=== PATIENT | female | born 1975 | race Caucasian/White ===

== ENCOUNTER 2019-11-15 21:35 | Inpatient (IN) | payer MEDICARE ==
[~2019-11-15] VITALS: Ht 160 cm; Wt 89.5 kg
[2019-11-15] MEDS ORDERED: BUMEX2 MG PO (22:35)
[2019-11-15] MEDS ORDERED: ALDACTONE50 MG PO (22:36)
[2019-11-15] MEDS ORDERED: K-DUR20 MEQ PO (22:36)
[2019-11-15] MEDS ORDERED: ADCIRCA20 MG PO (22:37)
[2019-11-16 00:57] LABS: BASOPHILS 0.2 % (0-2); EOSINOPHILS 1.6 % (0-7); HEMATOCRIT 34.9 % (36.0-48.0); HEMOGLOBIN 9.9 g/dL (12-16); IMMATURE GRANULOCYTES 0.3 % (0-5); LYMPHOCYTES 16.9 % (15-50); MCH 21.2 pg (26.0-34.0); MCHC 28.4 g/dL (31.0-37.0); MCV 74.9 fL (80.0-100.0); MEAN PLATELET VOLUME 9.2 fL (7.4-10.4); MONOCYTES 5.8 % (2-11); NEUTROPHILS 75.2 % (40-80); PLATELET COUNT 212 10x3/uL (130-400); RBC 4.66 10x6/uL (4.00-5.40); RDW 17.5 % (11.5-14.5)
[2019-11-16 01:06] LABS: ANION GAP 11.9 mmol/L (8-16); CALCIUM 8.7 mg/dL (8.5-10.1); CARBON DIOXIDE 29.3 mmol/L (21.0-32.0); CREATININE - SERUM 1.9 mg/dL (0.6-1.3); POTASSIUM - SERUM 3.2 mmol/L (3.5-5.1)
[2019-11-16 01:19] LABS: ALBUMIN 3.7 g/dL (3.4-5.0); BILIRUBIN - TOTAL 0.26 mg/dL (0.2-1.3); PROTEIN - SERUM 7.9 g/dL (6.4-8.2)
[2019-11-16 05:02] VITALS: BP 103/71
[2019-11-16 06:32] VITALS: BP 102/60
[2019-11-16 10:48] VITALS: BP 111/63
[2019-11-16 13:25] LABS: ANION GAP 14.4 mmol/L (8-16); CALCIUM 8.3 mg/dL (8.5-10.1); CARBON DIOXIDE 25.3 mmol/L (21.0-32.0); CREATININE - SERUM 1.6 mg/dL (0.6-1.3); POTASSIUM - SERUM 3.7 mmol/L (3.5-5.1)
--- NOTE | 2019-11-16 15:00 | NUR ---
RECEIVE PATIENT FROM ER VIA WHEELCHAIR. AMBULATORY. [facility] TO RIGHT CHEST PRIOR TO ADMITTANCE. WILL CHANGE DRESSING TODAY PER PROTOCOL. WILL CONTINUE PLAN OF CARE AND SAFETY PRECAUTIONS.
[2019-11-16] MEDS ORDERED: REMODULIN IV (15:08)
[2019-11-16] MEDS ORDERED: HYDROCODON-ACE1 EAC7 PO (15:10)
[2019-11-16] MEDS ORDERED: ZOFRAN4 MG PO (15:11)
[2019-11-16] MEDS ORDERED: LOMOTIL 2.5-0.1 EAC1 PO (15:12)
[2019-11-16] MEDS ORDERED: OMEPRAZOLE20 M1 PO (15:13)
[2019-11-16 16:28] VITALS: BP 117/73; Ht 160 cm; Wt 89.5 kg
--- NOTE | 2019-11-16 16:32 | NUR ---
CALLED AND SPOKE WITH NOEMY BACON ABOUT PATIENT HOME MEDICATION THROUGH [facility]. HE STATED "HE WAS FINE WITH HER BRINGING IT FROM HOME OR CALL PHARMACY AND SEE IF THEY HAVE SOMETHING SIMILAR SO THAT WE CAN MAKE SURE WE GET IT ADMINISTERED CORRECTLY." PHARMACY STATES THEY DO NOT HAVE ANYTHING LIKE THAT HERE FOR PATIENT TO BRING HOME MED AND SEND IT DOWN TO PHARMACY UPON ARRIVAL.
[2019-11-16 20:00] VITALS: BP 120/74
[2019-11-17] VITALS: BP 105/74
[2019-11-17 04:00] VITALS: BP 98/70
--- NOTE | 2019-11-17 07:44 | NUR ---
RECEIVE SHIFT REPORT. IN BED WITH KHADIJAH AT BEDSIDE. WANTS TO KNOW ABOUT HER POTASSIUM BECAUSE OF THE LASIX SHE HAS BEEN GETTING. WILL ADDRESS WHEN AM LABS ARE BACK. DENIES ANY OTHER NEEDS AT THIS TIME. WILL CONTINUE PLAN OF CARE AND SAFETY PRECAUTIONS.
[2019-11-17 07:52] LABS: BASOPHILS 0.2 % (0-2); EOSINOPHILS 2.2 % (0-7); HEMOGLOBIN 9.4 g/dL (12-16); IMMATURE GRANULOCYTES 0.3 % (0-5); LYMPHOCYTES 16.6 % (15-50); MCH 21.5 pg (26.0-34.0); MCHC 29.4 g/dL (31.0-37.0); MCV 73.1 fL (80.0-100.0); MEAN PLATELET VOLUME 9.3 fL (7.4-10.4); MONOCYTES 5.9 % (2-11); NEUTROPHILS 74.8 % (40-80); PLATELET COUNT 211 10x3/uL (130-400); RBC 4.38 10x6/uL (4.00-5.40); RDW 17.3 % (11.5-14.5); WBC 10.4 10x3/uL (4.8-10.8)
[2019-11-17 08:15] LABS: ALBUMIN 3.4 g/dL (3.4-5.0); ANION GAP 11.2 mmol/L (8-16); BILIRUBIN - TOTAL 0.29 mg/dL (0.2-1.3); CALCIUM 8.3 mg/dL (8.5-10.1); CARBON DIOXIDE 28.7 mmol/L (21.0-32.0); CREATININE - SERUM 1.5 mg/dL (0.6-1.3); MAGNESIUM - SERUM 1.9 mg/dL (1.8-2.4); PHOSPHOROUS 3.6 mg/dL (2.5-4.9); POTASSIUM - SERUM 3.9 mmol/L (3.5-5.1); PROTEIN - SERUM 6.8 g/dL (6.4-8.2)
--- NOTE | 2019-11-17 08:55 | EC ---
PATIENT:KELLEE BENNETT DATE OF SERVICE: 11/16/19 SEX: F MEDICAL RECORD: [id number] DATE OF : [birth year] LOCATION:D.M2 D.210 AGE OF PATIENT: 43 ADMISSION DATE: 11/16/19 REFERRING PHYSICIAN: INTERPRETING PHYSICIAN: CAPRICE العراقي MD ECHOCARDIOGRAM REPORT ECHO CHARGES 4 ECHO COMPLETE Date: 11/16/19 CLINICAL DIAGNOSIS: PULMONARY HTN, DYSPNEA ECHOCARDIOGRAPHIC MEASUREMENTS (adult normal given) AC root (d.<3.7cm) 2.4 cm LV Septum d (<1.2 cm> 1.1 cm Valve Excursion 1.6 cm LV Septum (systole) 1.2 cm Left Atria (s.<4.0cm> 3.9 cm LVPW d(<1.2cm) 1.0 cm RV (d.<2.3cm) 4.6 cm LVPW (sytole) 1.6 cm LV diastole(<5.6CM) 4.0 cm MV E-F(>70mm/sec) cm LV systole 2.9 cm LVOT Diameter 1.4 cm MV exc.(>10mm) 0.9 cm Est.ejection fraction (50-75%) % DOPPLER: LVIT cm/sec A 53 cm/sec E 80 cm/sec LA cm/sec RVSP 50 mmHg LVOT 83 cm/sec AOP1/2T m/s Asc. Ao 283 cm/sec RVOT 68 cm/sec RA cm/sec PA 84 cm/sec AV Gradient Peak 32.0 mmHg AV Mean 22.6 mmHg AV Area 0.2 cm MV Gradient Peak 5.7 mmHg MV Mean 2.6 mmHg MV Area cm COMMENTS: Veneer Stock Grader: Dominick RETANA Banking Representative: 3 Dr. Rashid TAPE# PACS Pericardial Effusion N DATE OF SERVICE: Adequate 2D, color flow imaging, spectral Doppler, and M-Mode. No LVH. LV internal dimensions are normal. Wall motion normal. EF greater than or equal to 55%. Aortic valve appears tricuspid with a good valve excursion. There is elevated velocity across the ascending aorta, 32 mmHg which could be consistent with mild . Left atrium is normal at 3.9 cm. Mitral valve shows no prolapse. Trace MR. Right-sided chambers are obviously dilated. Moderate TR. RV systolic pressure is estimated greater or equal to 55 mmHg via ECHOCARDIOGRAM REPORT [id number] KELLEE BENNETT the continuity equation. TRANSINT:[id number] Voice Confirmation ID: [id number] DOCUMENT ID: [id number] CAPRICE العراقي MD at 0855 CC: [id number] DICTATION DATE: 11/16/19 1403 SHUTDOWN COORDINATOR: 11/16/19 1419 ADM IN [place] [id number] [place] [id number]
[2019-11-17 10:44] VITALS: BP 102/66
[2019-11-17 14:13] VITALS: BP 110/75
[2019-11-17 23:04] VITALS: BP 118/77
[2019-11-18 02:06] VITALS: BP 106/76
[2019-11-18 05:53] VITALS: BP 105/85
--- NOTE | 2019-11-18 05:56 | NUR ---
I have reviewed this patient and I concur with the Shift Assessment completed by the Licensed Practical Nurse today this shift.
--- NOTE | 2019-11-18 08:04 | NUR ---
RECIEVED PATIENT SITTING UP IN BED THIS AM. PLAN OF CARE REVIEWED AND ASSESSMENT HAS BEEN COMPLETED. PATIENT DENIES PAIN OR NEEDS THIS AM. PATIENT HAS 2 PLUS PITTING EDEMA TO HER LOWER LEGS BILATERALLY, HER LEGS ARE DISCOLORED. 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 CALL LIGHT IN REACH. NAD NOTED.
[2019-11-18 08:23] VITALS: BP 133/73
[2019-11-18 08:26] LABS: BASOPHILS 0.2 % (0-2); EOSINOPHILS 2.1 % (0-7); HEMATOCRIT 31.6 % (36.0-48.0); HEMOGLOBIN 9.4 g/dL (12-16); IMMATURE GRANULOCYTES 0.4 % (0-5); LYMPHOCYTES 18.9 % (15-50); MCH 21.6 pg (26.0-34.0); MCHC 29.7 g/dL (31.0-37.0); MCV 72.5 fL (80.0-100.0); MEAN PLATELET VOLUME 9.4 fL (7.4-10.4); MONOCYTES 4.4 % (2-11); PLATELET COUNT 193 10x3/uL (130-400); RBC 4.36 10x6/uL (4.00-5.40); RDW 17.2 % (11.5-14.5); WBC 8.2 10x3/uL (4.8-10.8)
[2019-11-18 08:50] LABS: ALBUMIN 3.3 g/dL (3.4-5.0); ANION GAP 8.8 mmol/L (8-16); BILIRUBIN - TOTAL 0.36 mg/dL (0.2-1.3); CALCIUM 8.6 mg/dL (8.5-10.1); CARBON DIOXIDE 30.2 mmol/L (21.0-32.0); MAGNESIUM - SERUM 2.1 mg/dL (1.8-2.4); PROTEIN - SERUM 6.6 g/dL (6.4-8.2)
[2019-11-18 08:51] LABS: CREATININE - SERUM 1.1 mg/dL (0.6-1.3)
[2019-11-18] MEDS ORDERED: LASIX40 MG PO (09:28)
--- NOTE | 2019-11-18 11:36 | NUR ---
NURSE GAVE DC INSTRUCTIONS AND ASKED IF PATIENT WOULD CALL HER RIDE TO GO HOME. NURSE DC PATIENT TELE AND IV. PATIENT DENIES QUESTIONS AT THIS TIME. NURSE POINTS OUT HIGHLIGHTED FOLLOW UP INSTRUCTIONS. CALL LIGHT IN REACH
--- NOTE | 2019-11-18 18:15 | MORECARE ---
CASE MANAGEMENT DISCHARGE SUMMARY PATIENT: KELLEE BENNETT UNIT: [id number] ADM DATE: 11/16/19 AGE: 43 : [birth year] SEX: F ROOM/BED: D.2107 AUTHOR: BROOKLYN,DOC PHYSICIAN: REFERRING PHYSICIAN: CAPRICE BLACK MD DATE OF SERVICE: 11/18/19 Discharge Plan Patient Name: KELLEE BENNETT Facility: [facility]:[place] : 1975 Planned Disposition: Home Anticipated Discharge Date: 11/18/19 Discharge Date: 11/18/2019 Expected LOS: 2 Initial Reviewer: [email or web address] Initial Review Date: 11/18/2019 Generated: 11/18/19 7:14 pm DCP- Discharge Planning Updated by [email or web address]: Corinne Araya on 11/16/19 4:[address] CM met with patient for DC planning. Patient is in agreement to same. PCP: Dr. Ashley (new patient w/appointment 12/05). Pharmacy: [facility]. 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 DME: None. Emergency contact: Liz Albino (fianc?) [phone]. Patient gives permission to speak with fianc? if needed. CM explained HHS, SNF, Rehab, but patient states at this time she does not know if she will need any or not. CM will follow and assist PRN with DC needs/plans. DCPIA - Discharge Planning Initial Assessment Updated by [email or web address]: Chad Mari on 11/18/19 6:10 pm * Is the patient Alert and Oriented? Yes * How many steps to enter\exit or inside your home? 4/0 * PCP Santos * Pharmacy [facility] in [place] * Preadmission Environment Home Alone * ADLs Independent * Equipment None * Other Equipment NONE * List name and contact numbers for known caregivers / representatives who currently or will assist patient after discharge: friend, Georges Albino ([phone]) * Verbal permission to speak to the caregivers and representatives has been obtained from the patient. Yes * Community resources currently utilized None * Please name any agencies selected above. NONE * Additional services required to return to the preadmission environment? No * Can the patient safely return to the preadmission environment? Yes * Has this patient been hospitalized within the prior 30 days at any hospital? No Coverage Notice Reviewer: [id number] Henrry MojicaChadmiya Sousanes Notice Issued Date-Time: 11/18/2019 10:35 Notice Type: IM Discharge Notice Notice Delivered To: Patient Relationship to Patient: Self Space [employer] Operations Name: Delivery Method: HAND - Hand Delivered Yamilka Days: Prior Verbal Notification: Recipient Understood Notice: Yes Recipient Signature: Yes Med Rec Note Co-signed by Attending: Coverage Notice Comment: DC IMM delivered, explained, signed by the patient, and placed in chart. Signed form also left with the patient. Patient Name: KELLEE BENNETT Page [phone] at 1815 All edits/amendments must be made on the electronic document DICTATION DATE: 11/18/191813 RADIAL DRILL PRESS OPERATOR: LANEY 11/18/191813 RPT#: [id number] DC DATE:11/18/19 STATUS: DIS IN [facility] [address] [place] [address] END OF REPORT
--- NOTE | 2019-11-20 09:10 | MORECARE ---
CASE MANAGEMENT DISCHARGE SUMMARY PATIENT: KELLEE BENNETT UNIT: [id number] ADM DATE: 11/16/19 AGE: 43 : 71 SEX: F ROOM/BED: D.2108 AUTHOR: BROOKLYN,DOC PHYSICIAN: REFERRING PHYSICIAN: CAPRICE BLACK MD DATE OF SERVICE: 11/20/19 Discharge Plan Patient Name: KELLEE BENNETT Facility: [facility]:[place] : 1975 Planned Disposition: Home Anticipated Discharge Date: 11/18/19 Discharge Date: 11/18/2019 Expected LOS: 2 Initial Reviewer: [email or web address] Initial Review Date: 11/18/2019 Generated: 11/20/19 10:10 am DCP- Discharge Planning Updated by [email or web address]: Corinne Araya on 11/16/19 4:[address] CM met with patient for DC planning. Patient is in agreement to same. PCP: Dr. Ashley (new patient w/appointment 12/05). Pharmacy: [facility]. 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 DME: None. Emergency contact: Liz Albino (fianc?) [phone]. Patient gives permission to speak with fianc? if needed. CM explained HHS, SNF, Rehab, but patient states at this time she does not know if she will need any or not. CM will follow and assist PRN with DC needs/plans. DCPIA - Discharge Planning Initial Assessment Updated by [id number]: Chad Mari on 11/18/19 6:10 pm * Is the patient Alert and Oriented? Yes * How many steps to enter\exit or inside your home? 4/0 * PCP Santos * Pharmacy [facility] [place] * Preadmission Environment Home Alone * ADLs Independent * Equipment None * Other Equipment NONE * List name and contact numbers for known caregivers / representatives who currently or will assist patient after discharge: friend, Georgesdana Posada ([phone]) * Verbal permission to speak to the caregivers and representatives has been obtained from the patient. Yes * Community resources currently utilized None * Please name any agencies selected above. NONE * Additional services required to return to the preadmission environment? No * Can the patient safely return to the preadmission environment? Yes * Has this patient been hospitalized within the prior 30 days at any hospital? No Coverage Notice Reviewer: [id number] Henrry MojicaChadmiya Sousanes Notice Issued Date-Time: 11/18/2019 10:35 Notice Type: IM Discharge Notice Notice Delivered To: Patient Relationship to Patient: Self Research And Development Manager Name: Delivery Method: HAND - Hand Delivered Yamilka Days: Prior Verbal Notification: Recipient Understood Notice: Yes Recipient Signature: Yes Med Rec Note Co-signed by Attending: Coverage Notice Comment: DC IMM delivered, explained, signed by the patient, and placed in chart. Signed form also left with the patient. Last DP export: 11/18/19 5:15 Patient Name: KELLEE BENNETT Page [phone] at 0910 All edits/amendments must be made on the electronic document DICTATION DATE: 11/20/19909 POUNCING LATHE OPERATOR: LANEY 11/20/19909 RPT#: [id number] DC DATE:11/18/19 STATUS: DIS IN [facility] [address] [place] [address] END OF REPORT
== END 2019-11-18 13:58 | disposition home or self-care (01) | DRG 314 ==
LOC: D.ER 21:35 → D.EDHOLD 11-16 03:03 → D.M2 11-16 03:03
PROVIDERS: Family Medicine; ADMIT Family Medicine; ATTEND Family Medicine
DX: I27.20 Pulmonary hypertension, unspecified (principal); I50.23 Acute on chronic systolic (congestive) heart failure; N17.9 Acute kidney failure, unspecified; E87.1 Hypo-osmolality and hyponatremia; D50.9 Iron deficiency anemia, unspecified; E87.6 Hypokalemia; K21.9 Gastro-esophageal reflux disease without esophagitis; G89.29 Other chronic pain; M54.9 Dorsalgia, unspecified; I07.1 Rheumatic tricuspid insufficiency